=== PATIENT | female | born 1950 | race Caucasian/White ===

== ENCOUNTER 2016-11-16 11:32 | Emergency (ER) | payer OTHER, BC ==
[~2016-11-16] VITALS: Ht 157.5 cm; Wt 81.9 kg
[~2016-11-16 11:32] MED LIST: ASPIR 8181 M1 PO; ASPIRIN EC325 MG PO; ATARAX,VISTARIL25 MG PO; ATORVASTATIN CA80 MG PO; Atarax,Vistaril PO; CELEXA40 MG PO; CILOSTAZOL50 MG PO; CIPROFLOXACIN500 M1 PO; CITALOPRAM HBR20 MG PO; CITROMA296 ML PO; CLOPIDOGREL75 MG PO; CYANOCOBALAM1000 MCG PO; Cardizem CD,Cartia X PO; Diabeta,Micronase PO; ELAVIL25 MG PO; ESCITALOPRAM OX20 MG PO; Ecotrin PO; Effient PO; Elavil PO; FLEXERIL10 MG PO; FLONASE16 G1 BOTH NARES; GABAPENTIN100 MG PO; Glucophage PO; HUMALOG100 UNIT/1 SC; HYDROCORTISON28.4 GM TP; INSULIN PUMP SCCONT; INVOKANA300 MG PO; LEVEMIR FL100 UNIT/1 SC; LEVEMIR FL100 UNITS/ SC; LEVEMIR100 UNIT/2 SC; LEXAPRO20 MG PO; LIPITOR40 MG PO; LISINOPRIL10 MG PO; LISINOPRIL40 MG PO; LO-DOSE ASPIRIN81 M1 PO; Lipitor PO; METFORMIN HCL1000 MG PO; METOPROLOL SUCC50 MG PO; NEURONTIN300 MG PO; NITROSTAT0.4 MG SL; NORCO 5/3251 TABLET PO; Nitrostat,NitroQuick SL; NovoLOG, HumaLOG SC; OMEPRAZOLE20 M2 PO; PERCOCET 5/31 TABLET PO; PLAVIX75 MG PO; PREVPAC PATIEN1 EACH PO; PROAIR HFA8.5 GM IH; PROTONIX40 MG PO; TYLENOL EXTRA500 MG PO; VICTOZA0.6 MG/0.2 SC; VITAMIN B-6100 MG PO; ZETIA10 MG PO; Zestril,Prinivil PO; celeXA PO; levimir SQ
[2016-11-16 12:23] LABS: HEMATOCRIT 41.4 % (36.0-46.0); MCH 29.2 PG (29.0-34.0); MCHC 34.5 G/DL (30.0-36.0); MCV 84.7 FL (83-99); MEAN PLAT.VOLUME 10.1 uM^3 (9.5-12.4); PLATELET COUNT 305 K/uL (156-360); RBC DIS.WIDTH-SD 39.6 % (39-53); RED BLOOD COUNT 4.89 M/uL (3.80-5.20)
[2016-11-16 12:39] LABS: CHLORIDE 101 mEq/L (99-109); POTASSIUM 4.6 mEq/L (3.7-5.4); SODIUM 137 mEq/L (136-147)
[2016-11-16 12:41] LABS: GLUCOSE 274 mg/dL (70-99)
[2016-11-16 12:43] LABS: ANION GAP 8 MEQ/L (2-14); TOTAL BILIRUBIN 0.4 mg/dL (0.0-1.0)
[2016-11-16 12:45] LABS: ALKALINE PHOSPHATASE 92 IU/L (3-129); GFR ESTIMATE (CALCULATED) > 59 mL/min/
[2016-11-16 12:46] LABS: UREA NITROGEN (BUN) 15 mg/dL (9-23)
[2016-11-16 12:48] LABS: LIPASE 18 U/L (1.0-51.0)
[2016-11-16 14:03] LABS: ADD MIUA? YES; BILIRUBIN NEGATIVE; BLOOD NEGATIVE; COLOR YELLOW ((YELLOW)); GLUCOSE (STRIP) >=1000; KETONES NEGATIVE; LEUKOCYTES MODERATE; NITRITE NEGATIVE; PH, URINE 5.5 (5-8); PROTEIN (STRIP) TRACE; SPECIFIC GRAVITY 1.036 (1.000-1.030); UROBILINOGEN 0.2 MG/DL (0.2-1.0)
[2016-11-16 14:47] LABS: EPITHELIAL CELLS 1+; MUCUS NONE SEEN; RED BLOOD CELLS 0-5 /HPF (0-5); WHITE BLOOD CELLS 20-30 /HPF (0-5)
[2016-11-16 14:48] LABS: BACTERIA 1+; CASTS NONE SEEN /LPF; CRYSTALS NONE SEEN; UCUL ADDED? NO
[2016-11-16] MEDS ORDERED: NORCO 7.5/321 TABLET PO (15:54)
[2016-11-16] MEDS ORDERED: MOTRIN600 MG PO (15:54)
[2016-11-16 16:22] VITALS: BP 150/83
== END 2016-11-16 16:23 | disposition home or self-care (01) ==
LOC: EME 11:32
DX: B02.9 Zoster without complications (principal); E86.0 Dehydration; K57.90 Diverticulosis of intestine, part unspecified, without perforation or abscess without bleeding; E11.9 Type 2 diabetes mellitus without complications; E78.5 Hyperlipidemia, unspecified; I10 Essential (primary) hypertension; Z87.442 Personal history of urinary calculi; Z86.73 Personal history of transient ischemic attack (TIA), and cerebral infarction without residual deficits; Z96.41 Presence of insulin pump (external) (internal); Z79.4 Long term (current) use of insulin; Z98.61 Coronary angioplasty status; Z79.02 Long term (current) use of antithrombotics/antiplatelets; Z79.84 Long term (current) use of oral hypoglycemic drugs; Z79.82 Long term (current) use of aspirin
CPT/HCPCS: 74176; 80053; 81003; 83690; 85027; 87086; 93005; 99281; 99284; J3010

== ENCOUNTER 2017-09-19 07:14 | Inpatient (IN) | payer OTHER, BC ==
[~2017-09-19] VITALS: Ht 157.5 cm; Wt 85.7 kg
[~2017-09-19 07:14] MED LIST changes: +MOTRIN600 MG PO; +NORCO 7.5/321 TABLET PO
[2017-09-19] MEDS ORDERED: TOPROL XL25 MG PO (08:43)
[2017-09-19 08:46] LABS: POINT-OF-CARE METER ID UU13113696; POINT-OF-CARE USER ID HMLCJM07
[2017-09-19 12:58] LABS: POINT-OF-CARE METER ID UU13113819; POINT-OF-CARE USER ID 515036437
[2017-09-19 18:34] LABS: POINT-OF-CARE METER ID UU13113819
[2017-09-19 20:30] VITALS: BP 184/83
[2017-09-19 21:52] LABS: POINT-OF-CARE METER ID UU13113698
[2017-09-20] VITALS: BP 181/80
[2017-09-20 04:00] VITALS: BP 144/67
[2017-09-20 05:34] LABS: EOSINOPHIL (%) 1.1 % (0-5); EOSINOPHIL COUNT 0.1 K/uL (0-0.3); IMMATURE GRANULOCYTE (%) 0.2 % (0.0-0.7); INSTRUMENT ABS NEUTROPHIL CT 6.4 K/uL; LYMPHOCYTE COUNT 1.7 K/uL (1.0-2.8); MCH 28.2 PG (29.0-34.0); MCHC 33.8 G/DL (30.0-36.0); MCV 83.7 FL (83-99); MEAN PLAT.VOLUME 10.4 uM^3 (9.5-12.4); MONOCYTE (%) 6.8 % (3-12); MONOCYTE COUNT 0.6 K/uL (0-0.8); NEUTROPHIL (%) 72.4 % (45-76); NEUTROPHIL COUNT 6.4 K/uL (1.8-6.4); PLATELET COUNT 231 K/uL (156-360); RBC DIS.WIDTH-CV 12.8 % (11.8-14.6); RED BLOOD COUNT 4.78 M/uL (3.80-5.20); WHITE BLOOD COUNT 8.9 K/uL (4.1-10.2)
[2017-09-20 06:01] LABS: ANION GAP 9 MEQ/L (2-14); GFR ESTIMATE (CALCULATED) > 59 mL/min/; GLUCOSE 204 mg/dL (70-99); SAMPLE HEMOLYSIS CHECK 0; SAMPLE ICTERIC CHECK 0; SAMPLE LIPEMIA CHECK 0; SODIUM 136 MEQ/L (136-147); UREA NITROGEN (BUN) 15 mg/dL (9-23)
[2017-09-20 06:04] LABS: CHLORIDE 107 MEQ/L (99-109)
[2017-09-20 07:50] VITALS: BP 150/70
[2017-09-20 08:03] LABS: POINT-OF-CARE METER ID UU13113781
[2017-09-20 11:21] LABS: POINT-OF-CARE METER ID UU13113698
[2017-09-20 12:01] VITALS: BP 155/74
== END 2017-09-20 12:07 | disposition home or self-care (01) | DRG 247 ==
LOC: CATH 07:14 → ENRESERV 11:46 → 4EAST 20:51
PROVIDERS: Internal Medicine Interventional Cardiology
DX: I25.110 Atherosclerotic heart disease of native coronary artery with unstable angina pectoris (principal); Z95.5 Presence of coronary angioplasty implant and graft; I69.354 Hemiplegia and hemiparesis following cerebral infarction affecting left non-dominant side; E11.9 Type 2 diabetes mellitus without complications; I10 Essential (primary) hypertension; E78.2 Mixed hyperlipidemia; R60.0 Localized edema; E66.9 Obesity, unspecified; Z68.34 Body mass index [BMI] 34.0-34.9, adult
CPT/HCPCS: 36415; 80048; 82948; 85025; 85347; 85610; 85730; 93005; C1725; C1769; C1887; C1894; J0153; J0461; J0583; J1644; J1815; J2250; J3010; J7030

== ENCOUNTER 2017-09-26 20:09 | Inpatient (IN) | payer OTHER, BC ==
[~2017-09-26] VITALS: Ht 157.5 cm; Wt 84.9 kg
[~2017-09-26 20:09] MED LIST changes: +TOPROL XL25 MG PO
[2017-09-26 20:42] LABS: HEMATOCRIT 40.3 % (36.0-46.0); MCH 28.7 PG (29.0-34.0); MCHC 34.5 G/DL (30.0-36.0); MCV 83.1 FL (83-99); MEAN PLAT.VOLUME 10.2 uM^3 (9.5-12.4); RBC DIS.WIDTH-CV 12.9 % (11.8-14.6); RED BLOOD COUNT 4.85 M/uL (3.80-5.20); WHITE BLOOD COUNT 12.5 K/uL (4.1-10.2)
[2017-09-26 20:44] LABS: PLATELET COUNT 329 K/uL (156-360)
[2017-09-26 20:54] LABS: CHLORIDE 98 mEq/L (99-109); POTASSIUM 4.1 mEq/L (3.7-5.4); SODIUM 132 mEq/L (136-147)
[2017-09-26 20:58] LABS: ANION GAP 8 MEQ/L (2-14)
[2017-09-26 21:01] LABS: UREA NITROGEN (BUN) 20 mg/dL (9-23)
[2017-09-26 21:02] LABS: GFR ESTIMATE (CALCULATED) 30 mL/min/; GLUCOSE 458 mg/dL (70-99); TROP-I INTERPRETATION POSITIVE
[2017-09-26 21:05] LABS: TROPONIN-I 2.98 ng/mL (0.0-0.30)
[2017-09-26 22:58] LABS: PROTHROMBIN TIME 11.6 SEC (10.2-12.9)
[2017-09-26 23:01] LABS: PTT 27.1 SEC (25-37)
[2017-09-26 23:14] LABS: TROP-I INTERPRETATION POSITIVE
[2017-09-26 23:16] LABS: TROPONIN-I 14.51 ng/mL (0.0-0.30)
[2017-09-27] VITALS (31 sets, daily range): BP systolic 90–172; BP diastolic 49–107
[2017-09-27 01:11] LABS: POINT-OF-CARE METER ID UU13113702; POINT-OF-CARE USER ID HMLKAV
[2017-09-27 02:46] LABS: METH RESISTANT S AUREUS PCR NEGATIVE (NEGATIVE)
[2017-09-27 02:49] LABS: PROBE CHECK PASS; SPECIMEN PROCESSING CONTROL PASS
[2017-09-27 03:52] LABS: POINT-OF-CARE METER ID UU14208751
[2017-09-27 04:52] LABS: CHLORIDE 104 mEq/L (99-109); POTASSIUM 3.7 mEq/L (3.7-5.4); SODIUM 134 mEq/L (136-147)
[2017-09-27 04:54] LABS: GLUCOSE 308 mg/dL (70-99)
[2017-09-27 04:55] LABS: ANION GAP 4 MEQ/L (2-14)
[2017-09-27 04:56] LABS: TOTAL BILIRUBIN 0.4 mg/dL (0.0-1.0)
[2017-09-27 04:57] LABS: ALKALINE PHOSPHATASE 71 IU/L (3-129)
[2017-09-27 04:58] LABS: GFR ESTIMATE (CALCULATED) 44 mL/min/
[2017-09-27 04:58] LABS: POINT-OF-CARE METER ID UU14208751
[2017-09-27 04:59] LABS: UREA NITROGEN (BUN) 21 mg/dL (9-23)
[2017-09-27 05:04] LABS: TROP-I INTERPRETATION POSITIVE
[2017-09-27 05:54] LABS: POINT-OF-CARE METER ID UU14208751
[2017-09-27 06:38] LABS: Estimated Average Glucose 292 mg/dL (70-123); HEMOGLOBIN A1c (GLYCOHEMOGLOB) 11.8 % HGB (Below 5.7)
[2017-09-27 06:49] LABS: POINT-OF-CARE METER ID UU13113696
[2017-09-27 07:53] LABS: POINT-OF-CARE METER ID UU14208751
[2017-09-27 08:12] LABS: ANION GAP 4 MEQ/L (2-14); CHLORIDE 104 MEQ/L (99-109); POTASSIUM 3.6 MEQ/L (3.7-5.4); SAMPLE HEMOLYSIS CHECK 0; SAMPLE ICTERIC CHECK 0; SAMPLE LIPEMIA CHECK 0; SODIUM 138 MEQ/L (136-147)
[2017-09-27 08:18] LABS: GFR ESTIMATE (CALCULATED) 48 mL/min/; GLUCOSE 163 mg/dL (70-99); UREA NITROGEN (BUN) 21 mg/dL (9-23)
[2017-09-27 08:56] LABS: POINT-OF-CARE METER ID UU14208751
[2017-09-27 10:09] LABS: POINT-OF-CARE METER ID UU14208751
[2017-09-27 11:12] LABS: POINT-OF-CARE METER ID UU13113731
[2017-09-27 12:18] LABS: POINT-OF-CARE METER ID UU13113731
[2017-09-27 13:16] LABS: TROP-I INTERPRETATION POSITIVE; TROPONIN-I 38.42 ng/mL (0.0-0.30)
[2017-09-27 13:20] LABS: ANION GAP 7 MEQ/L (2-14); CHLORIDE 104 MEQ/L (99-109); GFR ESTIMATE (CALCULATED) 53 mL/min/; GLUCOSE 154 mg/dL (70-99); POTASSIUM 3.8 MEQ/L (3.7-5.4); SAMPLE HEMOLYSIS CHECK 0; SAMPLE ICTERIC CHECK 0; SAMPLE LIPEMIA CHECK 0; SODIUM 139 MEQ/L (136-147); UREA NITROGEN (BUN) 22 mg/dL (9-23)
[2017-09-27 13:25] LABS: POINT-OF-CARE METER ID UU13113731
[2017-09-27 14:34] LABS: POINT-OF-CARE METER ID UU13113731
[2017-09-27 15:43] LABS: POINT-OF-CARE METER ID UU13113731
[2017-09-27 16:18] LABS: ANION GAP 7 MEQ/L (2-14); CHLORIDE 104 MEQ/L (99-109); POTASSIUM 4.1 MEQ/L (3.7-5.4); SAMPLE HEMOLYSIS CHECK 0; SAMPLE ICTERIC CHECK 0; SAMPLE LIPEMIA CHECK 0; SODIUM 135 MEQ/L (136-147)
[2017-09-27 16:24] LABS: GFR ESTIMATE (CALCULATED) 53 mL/min/; GLUCOSE 206 mg/dL (70-99); UREA NITROGEN (BUN) 20 mg/dL (9-23)
[2017-09-27 16:37] LABS: POINT-OF-CARE METER ID UU13113731
[2017-09-27 17:51] LABS: POINT-OF-CARE METER ID UU13113731
[2017-09-27 22:07] LABS: POINT-OF-CARE METER ID UU13113731
[2017-09-28] VITALS (13 sets, daily range): BP systolic 127–173; BP diastolic 66–100
[2017-09-28 02:32] LABS: POINT-OF-CARE METER ID UU13113748
[2017-09-28 04:59] LABS: HEMATOCRIT 37.7 % (36.0-46.0); MCH 28.4 PG (29.0-34.0); MCHC 33.4 G/DL (30.0-36.0); MCV 85.1 FL (83-99); MEAN PLAT.VOLUME 10.4 uM^3 (9.5-12.4); PLATELET COUNT 263 K/uL (156-360); RBC DIS.WIDTH-CV 13.2 % (11.8-14.6); RBC DIS.WIDTH-SD 41.2 % (39-53); RED BLOOD COUNT 4.43 M/uL (3.80-5.20); WHITE BLOOD COUNT 9.7 K/uL (4.1-10.2)
[2017-09-28 05:13] LABS: CHLORIDE 105 mEq/L (99-109); POTASSIUM 4.2 mEq/L (3.7-5.4); SODIUM 138 mEq/L (136-147)
[2017-09-28 05:15] LABS: GLUCOSE 140 mg/dL (70-99)
[2017-09-28 05:16] LABS: ANION GAP 7 MEQ/L (2-14)
[2017-09-28 05:19] LABS: GFR ESTIMATE (CALCULATED) > 59 mL/min/; UREA NITROGEN (BUN) 17 mg/dL (9-23)
[2017-09-28 09:43] LABS: POINT-OF-CARE METER ID UU14314088
[2017-09-28 11:09] LABS: POINT-OF-CARE METER ID UU14314088
[2017-09-28 14:54] LABS: POINT-OF-CARE METER ID UU14314088
[2017-09-28 16:37] LABS: POINT-OF-CARE METER ID UU14314088
[2017-09-28 21:17] LABS: POINT-OF-CARE METER ID UU13113781
[2017-09-29 04:45] VITALS: BP 129/71
[2017-09-29 07:52] LABS: POINT-OF-CARE METER ID UU13113698
[2017-09-29 08:43] VITALS: BP 139/77
[2017-09-29] MEDS ORDERED: METOPROLOL SUCC25 MG PO (10:42)
[2017-09-29] MEDS ORDERED: ASPIR-LOW81 MG PO (10:43)
== END 2017-09-29 11:34 | disposition home or self-care (01) | DRG 281 ==
LOC: EME 20:09 → 4WEST 09-27 00:15 → EDOF 09-27 00:15 → ENRESERV 09-27 00:16 → 4WEST 09-27 01:16 → ENRESERV 09-28 07:31 → 4EAST 09-28 09:03
PROVIDERS: Emergency Medicine; Internal Medicine; Internal Medicine Critical Care Medicine
PROC: B41F1ZZ Fluoroscopy of Right Lower Extremity Arteries using Low Osmolar Contrast (ICD-10-PCS; principal; 2017-09-27)
PROC: 4A023N7 Measurement of Cardiac Sampling and Pressure, Left Heart, Percutaneous Approach (ICD-10-PCS; principal; 2017-09-27)
PROC: B2111ZZ Fluoroscopy of Multiple Coronary Arteries using Low Osmolar Contrast (ICD-10-PCS; principal; 2017-09-27)
PROC: B2151ZZ Fluoroscopy of Left Heart using Low Osmolar Contrast (ICD-10-PCS; principal; 2017-09-27)
DX: T82.867A Thrombosis due to cardiac prosthetic devices, implants and grafts, initial encounter (principal); Y83.1 Surgical operation with implant of artificial internal device as the cause of abnormal reaction of the patient, or of later complication, without mention of misadventure at the time of the procedure; I21.4 Non-ST elevation (NSTEMI) myocardial infarction; I16.1 Hypertensive emergency; N17.9 Acute kidney failure, unspecified; E86.0 Dehydration; I10 Essential (primary) hypertension; I25.10 Atherosclerotic heart disease of native coronary artery without angina pectoris; E78.5 Hyperlipidemia, unspecified; E11.65 Type 2 diabetes mellitus with hyperglycemia; F32.9 Major depressive disorder, single episode, unspecified; F41.9 Anxiety disorder, unspecified; G43.909 Migraine, unspecified, not intractable, without status migrainosus; E66.9 Obesity, unspecified; Z96.41 Presence of insulin pump (external) (internal); I69.398 Other sequelae of cerebral infarction; H53.8 Other visual disturbances; Z95.5 Presence of coronary angioplasty implant and graft; Z68.34 Body mass index [BMI] 34.0-34.9, adult; Z79.4 Long term (current) use of insulin; Z79.02 Long term (current) use of antithrombotics/antiplatelets; Z91.14 Patient's other noncompliance with medication regimen
CPT/HCPCS: 71020; 80048; 80048 91; 80053; 82948; 83036; 84100; 84484; 85027; 85347; 85610; 85730; 87641; 93005; 99281; 99285; C1760; C1769; C1887; C1894; J1644; J1815; J2250; J2270; J3010; J7030; J7040; J7050

== ENCOUNTER 2017-10-09 10:28 | Inpatient (IN) | payer OTHER, BC ==
[~2017-10-09] VITALS: Ht 157.5 cm; Wt 82.7 kg
[~2017-10-09 10:28] MED LIST changes: +ASPIR-LOW81 MG PO; +METOPROLOL SUCC25 MG PO
[2017-10-09 11:06] LABS: MCH 27.6 PG (29.0-34.0); MCHC 33.3 G/DL (30.0-36.0); MCV 82.8 FL (83-99); MEAN PLAT.VOLUME 9.9 uM^3 (9.5-12.4); RBC DIS.WIDTH-CV 12.8 % (11.8-14.6); RBC DIS.WIDTH-SD 38.4 % (39-53); RED BLOOD COUNT 5.07 M/uL (3.80-5.20); WHITE BLOOD COUNT 7.6 K/uL (4.1-10.2)
[2017-10-09 11:10] LABS: PLATELET COUNT 344 K/uL (156-360)
[2017-10-09 11:17] LABS: CHLORIDE 97 mEq/L (99-109); POTASSIUM 4.3 mEq/L (3.7-5.4); SODIUM 134 mEq/L (136-147)
[2017-10-09 11:20] LABS: ANION GAP 12 MEQ/L (2-14); GLUCOSE 422 mg/dL (70-99)
[2017-10-09 11:23] LABS: GFR ESTIMATE (CALCULATED) 44 mL/min/
[2017-10-09 11:24] LABS: UREA NITROGEN (BUN) 18 mg/dL (9-23)
[2017-10-09 11:27] LABS: TROP-I INTERPRETATION NEGATIVE; TROPONIN-I 0.21 ng/mL (0.0-0.30)
[2017-10-09 12:03] LABS: POINT-OF-CARE METER ID UU13113747
[2017-10-09 13:53] LABS: PROTHROMBIN TIME 11.2 SEC (10.2-12.9)
[2017-10-09 13:56] LABS: PTT 26.2 SEC (25-37)
[2017-10-09 14:31] LABS: POINT-OF-CARE METER ID UU13113747
[2017-10-09 17:08] LABS: POINT-OF-CARE METER ID UU13113702
[2017-10-09 18:00] VITALS: BP 153/75
[2017-10-09 18:40] LABS: TROP-I INTERPRETATION NEGATIVE; TROPONIN-I 0.26 ng/mL (0.0-0.30)
[2017-10-09 19:25] LABS: POINT-OF-CARE METER ID UU13113781
[2017-10-09 20:13] VITALS: BP 128/73
[2017-10-09 22:33] LABS: POINT-OF-CARE METER ID UU14314088
[2017-10-09 23:22] VITALS: BP 128/60
[2017-10-10] VITALS (7 sets, daily range): BP systolic 106–136; BP diastolic 58–78
[2017-10-10 00:56] LABS: TROP-I INTERPRETATION NEGATIVE; TROPONIN-I 0.22 ng/mL (0.0-0.30)
[2017-10-10 02:11] LABS: POINT-OF-CARE METER ID UU13113698
[2017-10-10 06:16] LABS: POINT-OF-CARE METER ID UU14314088
[2017-10-10 06:37] LABS: ANION GAP 9 MEQ/L (2-14); CHLORIDE 100 MEQ/L (99-109); GFR ESTIMATE (CALCULATED) 59 mL/min/; POTASSIUM 4.3 MEQ/L (3.7-5.4); SAMPLE HEMOLYSIS CHECK 0; SAMPLE ICTERIC CHECK 0; SAMPLE LIPEMIA CHECK 0; SODIUM 138 MEQ/L (136-147); UREA NITROGEN (BUN) 21 mg/dL (9-23)
[2017-10-10 06:40] LABS: GLUCOSE 185 mg/dL (70-99)
[2017-10-10 10:24] LABS: POINT-OF-CARE METER ID UU14174216
[2017-10-10 18:21] LABS: POINT-OF-CARE METER ID UU14314088
[2017-10-10 21:14] LABS: POINT-OF-CARE METER ID UU13113698
[2017-10-11] VITALS (8 sets, daily range): BP systolic 106–146; BP diastolic 60–82
[2017-10-11 06:55] LABS: MCH 27.9 PG (29.0-34.0); MCHC 32.7 G/DL (30.0-36.0); MCV 85.3 FL (83-99); MEAN PLAT.VOLUME 10.3 uM^3 (9.5-12.4); PLATELET COUNT 287 K/uL (156-360); RBC DIS.WIDTH-CV 12.9 % (11.8-14.6); RBC DIS.WIDTH-SD 40.3 % (39-53); RED BLOOD COUNT 4.34 M/uL (3.80-5.20); WHITE BLOOD COUNT 8.4 K/uL (4.1-10.2)
[2017-10-11 07:18] LABS: ANION GAP 8 MEQ/L (2-14); CHLORIDE 99 MEQ/L (99-109); GFR ESTIMATE (CALCULATED) 30 mL/min/; POTASSIUM 4.4 MEQ/L (3.7-5.4); SAMPLE HEMOLYSIS CHECK 0; SAMPLE ICTERIC CHECK 0; SAMPLE LIPEMIA CHECK 0; SODIUM 135 MEQ/L (136-147)
[2017-10-11 07:20] LABS: GLUCOSE 301 mg/dL (70-99); UREA NITROGEN (BUN) 37 mg/dL (9-23)
[2017-10-11 08:02] LABS: POINT-OF-CARE METER ID UU13113698
[2017-10-11 10:48] LABS: POINT-OF-CARE METER ID UU13113698
[2017-10-11 11:32] LABS: POINT-OF-CARE METER ID UU13113781
[2017-10-11 11:45] LABS: ANION GAP 5 MEQ/L (2-14); CHLORIDE 103 MEQ/L (99-109); GFR ESTIMATE (CALCULATED) 37 mL/min/; GLUCOSE 223 mg/dL (70-99); POTASSIUM 4.5 MEQ/L (3.7-5.4); SAMPLE HEMOLYSIS CHECK 0; SAMPLE ICTERIC CHECK 0; SAMPLE LIPEMIA CHECK 0; SODIUM 135 MEQ/L (136-147); UREA NITROGEN (BUN) 36 mg/dL (9-23)
[2017-10-11 21:41] LABS: POINT-OF-CARE METER ID UU14314088
[2017-10-12 00:34] VITALS: BP 134/76
[2017-10-12 04:57] VITALS: BP 131/61
[2017-10-12 06:14] LABS: ANION GAP 5 MEQ/L (2-14); CHLORIDE 105 MEQ/L (99-109); GFR ESTIMATE (CALCULATED) 37 mL/min/; GLUCOSE 185 mg/dL (70-99); POTASSIUM 4.2 MEQ/L (3.7-5.4); SAMPLE HEMOLYSIS CHECK 0; SAMPLE ICTERIC CHECK 0; SAMPLE LIPEMIA CHECK 0; SODIUM 138 MEQ/L (136-147); UREA NITROGEN (BUN) 32 mg/dL (9-23)
[2017-10-12 06:32] LABS: POINT-OF-CARE METER ID UU14314088
[2017-10-12 06:48] LABS: EOSINOPHIL (%) 3.1 % (0-5); EOSINOPHIL COUNT 0.2 K/uL (0-0.3); HEMATOCRIT 34.9 % (36.0-46.0); IMMATURE GRANULOCYTE (%) 0.3 % (0.0-0.7); INSTRUMENT ABS NEUTROPHIL CT 3.7 K/uL; LYMPHOCYTE COUNT 1.9 K/uL (1.0-2.8); MCH 28.4 PG (29.0-34.0); MCHC 33.2 G/DL (30.0-36.0); MCV 85.5 FL (83-99); MEAN PLAT.VOLUME 10.6 uM^3 (9.5-12.4); MONOCYTE (%) 9.8 % (3-12); MONOCYTE COUNT 0.6 K/uL (0-0.8); NEUTROPHIL (%) 57.4 % (45-76); NEUTROPHIL COUNT 3.7 K/uL (1.8-6.4); PLATELET COUNT 251 K/uL (156-360); RBC DIS.WIDTH-CV 13.2 % (11.8-14.6); RBC DIS.WIDTH-SD 41.2 % (39-53); RED BLOOD COUNT 4.08 M/uL (3.80-5.20); WHITE BLOOD COUNT 6.4 K/uL (4.1-10.2)
[2017-10-12 07:49] VITALS: BP 139/74
[2017-10-12 08:12] LABS: POINT-OF-CARE METER ID UU13113698
[2017-10-12] MEDS ORDERED: IMDUR60 MG PO (10:34)
[2017-10-12] MEDS ORDERED: RANEXA500 MG PO (10:34)
[2017-10-12] MEDS ORDERED: BRILINTA90 MG PO (10:34)
[2017-10-12] MEDS ORDERED: NITROSTAT0.4 MG SL (10:34)
== END 2017-10-12 11:54 | disposition home or self-care (01) | DRG 246 ==
LOC: EME 10:28 → EDOF 12:41 → ENRESERV 12:47 → CANRESERV 12:47 → EDOF 13:07 → 4EAST 13:07 → EDOF 13:07 → ENRESERV 13:08 → 4EAST 17:38
PROVIDERS: Emergency Medicine Emergency Medical Services; Family Medicine; Internal Medicine; Internal Medicine Cardiovascular Disease
DX: I25.110 Atherosclerotic heart disease of native coronary artery with unstable angina pectoris (principal); I21.4 Non-ST elevation (NSTEMI) myocardial infarction; N17.9 Acute kidney failure, unspecified; T46.4X5A Adverse effect of angiotensin-converting-enzyme inhibitors, initial encounter; Y92.239 Unspecified place in hospital as the place of occurrence of the external cause; N18.4 Chronic kidney disease, stage 4 (severe); I12.9 Hypertensive chronic kidney disease with stage 1 through stage 4 chronic kidney disease, or unspecified chronic kidney disease; Z91.19 Patient's noncompliance with other medical treatment and regimen; I35.0 Nonrheumatic aortic (valve) stenosis; E78.5 Hyperlipidemia, unspecified; Z86.73 Personal history of transient ischemic attack (TIA), and cerebral infarction without residual deficits; I25.2 Old myocardial infarction; Z79.4 Long term (current) use of insulin; Z95.1 Presence of aortocoronary bypass graft; Z96.41 Presence of insulin pump (external) (internal); E11.22 Type 2 diabetes mellitus with diabetic chronic kidney disease
CPT/HCPCS: 71020; 80048; 80048 91; 82948; 84484; 85025; 85027; 85347; 85610; 85730; 93005; 99281; 99285; C1725; C1760; C1769; C1874; C1887; C1894; J0461; J0583; J0690; J1644; J1815; J2250; J2270; J3010; J7030

== ENCOUNTER 2017-10-22 23:14 | Inpatient (IN) | payer OTHER, BC ==
[~2017-10-22] VITALS: Ht 157.5 cm; Wt 81.8 kg
[~2017-10-22 23:14] MED LIST changes: +BRILINTA90 MG PO; +IMDUR60 MG PO; +RANEXA500 MG PO
[2017-10-22 23:48] LABS: HEMATOCRIT 44.3 % (36.0-46.0); MCH 27.7 PG (29.0-34.0); MCHC 33.6 G/DL (30.0-36.0); MCV 82.5 FL (83-99); MEAN PLAT.VOLUME 10.2 uM^3 (9.5-12.4); PLATELET COUNT 373 K/uL (156-360); RBC DIS.WIDTH-CV 12.8 % (11.8-14.6); RBC DIS.WIDTH-SD 38.5 % (39-53); RED BLOOD COUNT 5.37 M/uL (3.80-5.20); WHITE BLOOD COUNT 9.1 K/uL (4.1-10.2)
[2017-10-22 23:56] LABS: CHLORIDE 101 mEq/L (99-109); POTASSIUM 4.1 mEq/L (3.7-5.4); SODIUM 135 mEq/L (136-147)
[2017-10-22 23:59] LABS: GLUCOSE 308 mg/dL (70-99); PROTHROMBIN TIME 10.9 SEC (10.2-12.9)
[2017-10-23] LABS: ANION GAP 12 MEQ/L (2-14)
[2017-10-23 00:01] LABS: TOTAL BILIRUBIN 0.5 mg/dL (0.0-1.0)
[2017-10-23 00:02] LABS: ALKALINE PHOSPHATASE 82 IU/L (3-129); GFR ESTIMATE (CALCULATED) 48 mL/min/; PTT 29.7 SEC (25-37)
[2017-10-23 00:03] LABS: UREA NITROGEN (BUN) 17 mg/dL (9-23)
[2017-10-23 00:06] LABS: LIPASE 27 U/L (1.0-51.0)
[2017-10-23 00:07] LABS: TROP-I INTERPRETATION NEGATIVE; TROPONIN-I 0.04 ng/mL (0.0-0.30)
[2017-10-23 03:56] LABS: TROP-I INTERPRETATION NEGATIVE; TROPONIN-I 0.04 ng/mL (0.0-0.30)
[2017-10-23 05:01] LABS: POINT-OF-CARE METER ID UU14100415
[2017-10-23 07:10] LABS: HEMATOCRIT 38.1 % (36.0-46.0); MCH 28.8 PG (29.0-34.0); MCHC 34.1 G/DL (30.0-36.0); MCV 84.5 FL (83-99); MEAN PLAT.VOLUME 10.2 uM^3 (9.5-12.4); PLATELET COUNT 305 K/uL (156-360); RBC DIS.WIDTH-CV 12.9 % (11.8-14.6); RBC DIS.WIDTH-SD 39.8 % (39-53); RED BLOOD COUNT 4.51 M/uL (3.80-5.20); WHITE BLOOD COUNT 8.4 K/uL (4.1-10.2)
[2017-10-23 07:40] LABS: TROP-I INTERPRETATION NEGATIVE; TROPONIN-I 0.04 ng/mL (0.0-0.30)
[2017-10-23 08:14] LABS: ANION GAP 7 MEQ/L (2-14); CHLORIDE 102 MEQ/L (99-109); GFR ESTIMATE (CALCULATED) 44 mL/min/; GLUCOSE 241 mg/dL (70-99); POTASSIUM 4.2 MEQ/L (3.7-5.4); SAMPLE HEMOLYSIS CHECK 0; SAMPLE ICTERIC CHECK 0; SAMPLE LIPEMIA CHECK 0; SODIUM 135 MEQ/L (136-147); UREA NITROGEN (BUN) 19 mg/dL (9-23)
[2017-10-23 08:14] LABS: POINT-OF-CARE METER ID UU14100415
[2017-10-23 08:35] LABS: ADD MIUA? YES; BILIRUBIN NEGATIVE; BLOOD NEGATIVE; COLOR YELLOW ((YELLOW)); GLUCOSE (STRIP) >=500; KETONES NEGATIVE; LEUKOCYTES TRACE; NITRITE NEGATIVE; PROTEIN (STRIP) 30; UROBILINOGEN 0.2 MG/DL (0.2-1.0)
[2017-10-23 08:51] LABS: BACTERIA NONE SEEN /HPF; EPITHELIAL CELLS 1+ /HPF; MUCUS TRACE /LPF; RED BLOOD CELLS 0-5 /HPF (0-5); UCUL ADDED? YES
[2017-10-23 08:53] LABS: SPECIFIC GRAVITY 1.057 (1.000-1.030)
[2017-10-23] MEDS ORDERED: LISINOPRIL40 MG PO (09:46)
[2017-10-23 12:12] VITALS: BP 104/59
[2017-10-23 12:19] LABS: POINT-OF-CARE METER ID UU14100415
[2017-10-23 12:20] LABS: TROP-I INTERPRETATION NEGATIVE; TROPONIN-I 0.04 ng/mL (0.0-0.30)
== END 2017-10-23 14:36 | disposition home or self-care (01) | DRG 313 ==
LOC: EME 23:14 → EDOF 10-23 02:38 → ENRESERV 10-23 02:39 → CANRESERV 10-23 02:39 → ENRESERV 10-23 13:04 → CANRESERV 10-23 13:04 → EDOF 10-23 14:36
PROVIDERS: Emergency Medicine; Hospitalist
DX: R07.9 Chest pain, unspecified (principal); E11.65 Type 2 diabetes mellitus with hyperglycemia; I25.110 Atherosclerotic heart disease of native coronary artery with unstable angina pectoris; I16.0 Hypertensive urgency; I10 Essential (primary) hypertension; Z86.73 Personal history of transient ischemic attack (TIA), and cerebral infarction without residual deficits; E66.9 Obesity, unspecified; I25.2 Old myocardial infarction; E78.5 Hyperlipidemia, unspecified; K21.9 Gastro-esophageal reflux disease without esophagitis; Z96.41 Presence of insulin pump (external) (internal); Z79.4 Long term (current) use of insulin; Z95.5 Presence of coronary angioplasty implant and graft; Z90.710 Acquired absence of both cervix and uterus; Z87.11 Personal history of peptic ulcer disease; Z82.49 Family history of ischemic heart disease and other diseases of the circulatory system
CPT/HCPCS: 71275; 80048; 80053; 81003; 82948; 83690; 84484; 85027; 85610; 85730; 87086; 93005; J0360; J1644; J2270; J2405

== ENCOUNTER 2017-10-25 00:57 | Observation (INO) | payer OTHER, BC ==
[~2017-10-25] VITALS: Ht 157.5 cm; Wt 84.4 kg
[2017-10-25 01:29] LABS: HEMATOCRIT 38.7 % (36.0-46.0); MCH 28.5 PG (29.0-34.0); MCHC 34.1 G/DL (30.0-36.0); MCV 83.6 FL (83-99); MEAN PLAT.VOLUME 10.1 uM^3 (9.5-12.4); PLATELET COUNT 296 K/uL (156-360); RBC DIS.WIDTH-CV 12.8 % (11.8-14.6); RBC DIS.WIDTH-SD 38.7 % (39-53); RED BLOOD COUNT 4.63 M/uL (3.80-5.20); WHITE BLOOD COUNT 9.6 K/uL (4.1-10.2)
[2017-10-25 01:38] LABS: CHLORIDE 104 mEq/L (99-109); POTASSIUM 4.3 mEq/L (3.7-5.4); SODIUM 136 mEq/L (136-147)
[2017-10-25 01:39] LABS: GLUCOSE 330 mg/dL (70-99)
[2017-10-25 01:41] LABS: ANION GAP 9 MEQ/L (2-14)
[2017-10-25 01:43] LABS: GFR ESTIMATE (CALCULATED) 44 mL/min/
[2017-10-25 01:44] LABS: UREA NITROGEN (BUN) 24 mg/dL (9-23)
[2017-10-25 01:50] LABS: TROP-I INTERPRETATION NEGATIVE; TROPONIN-I 0.03 ng/mL (0.0-0.30)
[2017-10-25 02:43] LABS: TOTAL BILIRUBIN 0.4 mg/dL (0.0-1.0)
[2017-10-25 02:44] LABS: ALKALINE PHOSPHATASE 93 IU/L (3-129)
[2017-10-25 02:46] LABS: DIRECT BILIRUBIN 0.1 mg/dL (0.0-0.3)
[2017-10-25 02:47] LABS: LIPASE 42 U/L (1.0-51.0)
[2017-10-25 12:24] VITALS: BP 103/58
[2017-10-25 14:00] LABS: TROP-I INTERPRETATION NEGATIVE; TROPONIN-I 0.02 ng/mL (0.0-0.30)
[2017-10-25 14:58] LABS: POINT-OF-CARE METER ID UU14162513
[2017-10-25 16:01] VITALS: BP 113/56
[2017-10-25 16:39] LABS: POINT-OF-CARE METER ID UU14162513
[2017-10-25 18:32] LABS: TROP-I INTERPRETATION NEGATIVE; TROPONIN-I 0.02 ng/mL (0.0-0.30)
[2017-10-25 19:19] VITALS: BP 197/59
[2017-10-25 21:38] LABS: POINT-OF-CARE METER ID UU14162513
[2017-10-25 23:45] VITALS: BP 123/69
[2017-10-26 04:45] VITALS: BP 160/80
[2017-10-26 05:29] LABS: EOSINOPHIL (%) 4.9 % (0-5); HEMATOCRIT 35.9 % (36.0-46.0); IMMATURE GRANULOCYTE (%) 0.4 % (0.0-0.7); MCH 28.4 PG (29.0-34.0); MCHC 33.4 G/DL (30.0-36.0); MCV 84.9 FL (83-99); MEAN PLAT.VOLUME 10.2 uM^3 (9.5-12.4); MONOCYTE (%) 7.5 % (3-12); NEUTROPHIL (%) 61.8 % (45-76); PLATELET COUNT 269 K/uL (156-360); RBC DIS.WIDTH-CV 13.1 % (11.8-14.6); RBC DIS.WIDTH-SD 39.8 % (39-53); RED BLOOD COUNT 4.23 M/uL (3.80-5.20); WHITE BLOOD COUNT 8.4 K/uL (4.1-10.2)
[2017-10-26 05:30] LABS: BASOPHIL COUNT 0.1 K/uL (0-0.1); EOSINOPHIL COUNT 0.4 K/uL (0-0.3); INSTRUMENT ABS NEUTROPHIL CT 5.2 K/uL; LYMPHOCYTE COUNT 2.1 K/uL (1.0-2.8); MONOCYTE COUNT 0.6 K/uL (0-0.8); NEUTROPHIL COUNT 5.2 K/uL (1.8-6.4)
[2017-10-26 06:12] LABS: ANION GAP 7 MEQ/L (2-14); CHLORIDE 104 MEQ/L (99-109); GFR ESTIMATE (CALCULATED) 34 mL/min/; GLUCOSE 141 mg/dL (70-99); POTASSIUM 4.3 MEQ/L (3.7-5.4); SAMPLE HEMOLYSIS CHECK 0; SAMPLE ICTERIC CHECK 0; SAMPLE LIPEMIA CHECK 0; SODIUM 138 MEQ/L (136-147); UREA NITROGEN (BUN) 27 mg/dL (9-23)
[2017-10-26 08:02] LABS: POINT-OF-CARE METER ID UU14162513
[2017-10-26 08:13] VITALS: BP 139/82
[2017-10-26 11:25] VITALS: BP 112/59
[2017-10-26 11:43] LABS: UR CREATININE CONCENTRATION 240.1 MG/DL
[2017-10-26 12:15] LABS: POINT-OF-CARE METER ID UU14162513
[2017-10-26 14:52] LABS: ANION GAP 7 MEQ/L (2-14); CHLORIDE 106 MEQ/L (99-109); SAMPLE HEMOLYSIS CHECK 1; SAMPLE ICTERIC CHECK 0; SAMPLE LIPEMIA CHECK 0; SODIUM 135 MEQ/L (136-147)
[2017-10-26 14:59] LABS: GFR ESTIMATE (CALCULATED) 30 mL/min/; GLUCOSE 173 mg/dL (70-99); UREA NITROGEN (BUN) 31 mg/dL (9-23)
[2017-10-26 17:23] LABS: POINT-OF-CARE METER ID UU14162513
[2017-10-26 19:10] VITALS: BP 123/63
[2017-10-26 19:43] LABS: ADD MIUA? YES; BILIRUBIN NEGATIVE; BLOOD NEGATIVE; COLOR YELLOW ((YELLOW)); GLUCOSE (STRIP) 50; KETONES NEGATIVE; LEUKOCYTES NEGATIVE; NITRITE NEGATIVE; PROTEIN (STRIP) NEGATIVE; SPECIFIC GRAVITY 1.016 (1.000-1.030); UROBILINOGEN 0.2 MG/DL (0.2-1.0)
[2017-10-26 19:51] LABS: BACTERIA NONE SEEN /HPF; EPITHELIAL CELLS 1+ /HPF; MUCUS NONE SEEN /LPF; WHITE BLOOD CELLS 0-5 /HPF (0-5)
[2017-10-26 21:35] LABS: POINT-OF-CARE METER ID UU14162513
[2017-10-26 23:21] VITALS: BP 136/65
[2017-10-27 04:23] VITALS: BP 141/70
[2017-10-27 05:34] LABS: EOSINOPHIL COUNT 0.3 K/uL (0-0.3); HEMATOCRIT 34.2 % (36.0-46.0); IMMATURE GRANULOCYTE (%) 0.3 % (0.0-0.7); INSTRUMENT ABS NEUTROPHIL CT 3.3 K/uL; LYMPHOCYTE COUNT 2.6 K/uL (1.0-2.8); MCH 28.3 PG (29.0-34.0); MCHC 32.5 G/DL (30.0-36.0); MCV 87.2 FL (83-99); MEAN PLAT.VOLUME 10.3 uM^3 (9.5-12.4); MONOCYTE (%) 7.6 % (3-12); MONOCYTE COUNT 0.5 K/uL (0-0.8); NEUTROPHIL (%) 48.3 % (45-76); NEUTROPHIL COUNT 3.3 K/uL (1.8-6.4); PLATELET COUNT 254 K/uL (156-360); RBC DIS.WIDTH-CV 13.2 % (11.8-14.6); RBC DIS.WIDTH-SD 42.1 % (39-53); RED BLOOD COUNT 3.92 M/uL (3.80-5.20); WHITE BLOOD COUNT 6.8 K/uL (4.1-10.2)
[2017-10-27 06:06] LABS: ANION GAP 6 MEQ/L (2-14); CHLORIDE 107 MEQ/L (99-109); GFR ESTIMATE (CALCULATED) 40 mL/min/; GLUCOSE 102 mg/dL (70-99); POTASSIUM 4.4 MEQ/L (3.7-5.4); SAMPLE HEMOLYSIS CHECK 0; SAMPLE ICTERIC CHECK 0; SAMPLE LIPEMIA CHECK 0; SODIUM 140 MEQ/L (136-147); UREA NITROGEN (BUN) 27 mg/dL (9-23)
[2017-10-27 08:09] LABS: POINT-OF-CARE METER ID UU14162513
[2017-10-27 08:31] VITALS: BP 157/73
[2017-10-27 11:35] VITALS: BP 105/57
[2017-10-27 12:27] LABS: POINT-OF-CARE METER ID UU14162513
[2017-10-27 12:34] LABS: ANION GAP 5 MEQ/L (2-14); CHLORIDE 107 MEQ/L (99-109); GFR ESTIMATE (CALCULATED) 37 mL/min/; GLUCOSE 131 mg/dL (70-99); POTASSIUM 4.4 MEQ/L (3.7-5.4); SAMPLE HEMOLYSIS CHECK 0; SAMPLE ICTERIC CHECK 0; SAMPLE LIPEMIA CHECK 0; SODIUM 136 MEQ/L (136-147); UREA NITROGEN (BUN) 27 mg/dL (9-23)
[2017-10-27 16:04] VITALS: BP 146/82
[2017-10-27 16:22] VITALS: BP 139/68
[2017-10-27 16:30] LABS: POINT-OF-CARE METER ID UU14162513
[2017-10-27 20:00] VITALS: BP 158/76
[2017-10-27 22:16] LABS: POINT-OF-CARE METER ID UU14162513
[2017-10-28] VITALS: BP 146/73
[2017-10-28 04:00] VITALS: BP 160/80
[2017-10-28 06:27] LABS: ANION GAP 5 MEQ/L (2-14); CHLORIDE 109 MEQ/L (99-109); GFR ESTIMATE (CALCULATED) 32 mL/min/; GLUCOSE 105 mg/dL (70-99); POTASSIUM 4.9 MEQ/L (3.7-5.4); SAMPLE HEMOLYSIS CHECK 0; SAMPLE ICTERIC CHECK 0; SAMPLE LIPEMIA CHECK 0; SODIUM 142 MEQ/L (136-147); UREA NITROGEN (BUN) 25 mg/dL (9-23)
[2017-10-28 07:58] LABS: POINT-OF-CARE METER ID UU14302475
[2017-10-28] MEDS ORDERED: APRESOLINE10 MG PO (10:35)
[2017-10-28] MEDS ORDERED: TYLENOL REGULA325 MG PO (10:36)
[2017-10-28] MEDS ORDERED: OXYCONTIN10 MG PO (10:39)
== END 2017-10-28 12:45 | disposition home or self-care (01) ==
LOC: EME 00:57 → EDOF 06:05 → ENRESERV 06:19 → EDOF 06:58 → ENRESERV 10:56 → 5WEST 11:56 → ENPENDDIS 10-28 → 5WEST 10-28 12:45
PROVIDERS: Hospitalist; Internal Medicine
DX: M54.9 Dorsalgia, unspecified (principal); M25.511 Pain in right shoulder; I10 Essential (primary) hypertension; N17.9 Acute kidney failure, unspecified; T39.395A Adverse effect of other nonsteroidal anti-inflammatory drugs [NSAID], initial encounter; T50.8X5A Adverse effect of diagnostic agents, initial encounter; E11.65 Type 2 diabetes mellitus with hyperglycemia; R31.29 Other microscopic hematuria; D64.9 Anemia, unspecified; E87.2 Acidosis; E78.5 Hyperlipidemia, unspecified; I25.10 Atherosclerotic heart disease of native coronary artery without angina pectoris; Z95.5 Presence of coronary angioplasty implant and graft; Z90.710 Acquired absence of both cervix and uterus; Z82.49 Family history of ischemic heart disease and other diseases of the circulatory system; Z82.3 Family history of stroke; F40.240 Claustrophobia
CPT/HCPCS: 71020; 71275; 76705; 76770; 80048; 80048 91; 80076; 81003; 82570; 82948; 83690; 83935; 84300; 84484; 84540; 85025; 85027; 85651; 86140; 89190; 93005; 99281; 99285; G0378; J0360; J1170; J1650; J1885; J2270; J7030; J7040; J7050

== ENCOUNTER 2017-10-29 00:04 | Emergency (ER) | payer OTHER, BC ==
[~2017-10-29] VITALS: Ht 172.7 cm; Wt 91.8 kg
[~2017-10-29 00:04] MED LIST changes: +APRESOLINE10 MG PO; +OXYCONTIN10 MG PO; +TYLENOL REGULA325 MG PO
[2017-10-29 00:38] LABS: EOSINOPHIL (%) 3.7 % (0-5); EOSINOPHIL COUNT 0.3 K/uL (0-0.3); HEMATOCRIT 33.6 % (36.0-46.0); IMMATURE GRANULOCYTE (%) 0.4 % (0.0-0.7); INSTRUMENT ABS NEUTROPHIL CT 6.1 K/uL; LYMPHOCYTE COUNT 1.4 K/uL (1.0-2.8); MCH 28.6 PG (29.0-34.0); MCHC 32.7 G/DL (30.0-36.0); MCV 87.3 FL (83-99); MEAN PLAT.VOLUME 10.4 uM^3 (9.5-12.4); MONOCYTE (%) 5.2 % (3-12); MONOCYTE COUNT 0.4 K/uL (0-0.8); NEUTROPHIL (%) 73.4 % (45-76); NEUTROPHIL COUNT 6.1 K/uL (1.8-6.4); PLATELET COUNT 246 K/uL (156-360); RBC DIS.WIDTH-CV 13.3 % (11.8-14.6); RBC DIS.WIDTH-SD 42.1 % (39-53); RED BLOOD COUNT 3.85 M/uL (3.80-5.20); WHITE BLOOD COUNT 8.3 K/uL (4.1-10.2)
[2017-10-29 00:53] LABS: CHLORIDE 108 mEq/L (99-109); POTASSIUM 4.7 mEq/L (3.7-5.4); SODIUM 139 mEq/L (136-147)
[2017-10-29 00:54] LABS: MAGNESIUM 1.9 mg/dL (1.3-2.7)
[2017-10-29 00:57] LABS: ANION GAP 8 MEQ/L (2-14)
[2017-10-29 00:58] LABS: GLUCOSE 272 mg/dL (70-99); TOTAL BILIRUBIN 0.4 mg/dL (0.0-1.0)
[2017-10-29 00:59] LABS: GFR ESTIMATE (CALCULATED) 37 mL/min/
[2017-10-29 01:00] LABS: ALKALINE PHOSPHATASE 118 IU/L (3-129); TROP-I INTERPRETATION NEGATIVE; TROPONIN-I 0.02 ng/mL (0.0-0.30); UREA NITROGEN (BUN) 24 mg/dL (9-23)
[2017-10-29 01:02] LABS: CK-MB 1.8 ng/mL (0.0-4.9)
[2017-10-29 01:03] LABS: CREATINE KINASE 39 IU/L (1-294); LIPASE 21 U/L (1.0-51.0); TOTAL CK 39 IU/L (1-294)
[2017-10-29 01:54] LABS: ADD MIUA? NO; BILIRUBIN NEGATIVE; BLOOD NEGATIVE; COLOR YELLOW ((YELLOW)); GLUCOSE (STRIP) >=500; KETONES NEGATIVE; LEUKOCYTES NEGATIVE; NITRITE NEGATIVE; PROTEIN (STRIP) 30; SPECIFIC GRAVITY 1.012 (1.000-1.030); UCUL ADDED? NO; UROBILINOGEN 0.2 MG/DL (0.2-1.0)
[2017-10-29 03:54] LABS: TROP-I INTERPRETATION NEGATIVE; TROPONIN-I 0.03 ng/mL (0.0-0.30)
[2017-10-29 04:34] VITALS: BP 182/90
== END 2017-10-29 04:37 | disposition home or self-care (01) ==
LOC: EME → EDBD 00:04 → EME 04:37
PROVIDERS: Emergency Medicine
DX: M54.6 Pain in thoracic spine (principal); R07.9 Chest pain, unspecified; E11.9 Type 2 diabetes mellitus without complications; Z79.4 Long term (current) use of insulin; E78.5 Hyperlipidemia, unspecified; I25.2 Old myocardial infarction; I25.10 Atherosclerotic heart disease of native coronary artery without angina pectoris; Z95.5 Presence of coronary angioplasty implant and graft; Z86.73 Personal history of transient ischemic attack (TIA), and cerebral infarction without residual deficits; F32.9 Major depressive disorder, single episode, unspecified; K21.9 Gastro-esophageal reflux disease without esophagitis
CPT/HCPCS: 71010; 80053; 81003; 82550; 82553; 83690; 83735; 84484; 85025; 93005; J2405

== ENCOUNTER 2017-11-01 20:39 | Inpatient (IN) | payer OTHER, BC ==
[~2017-11-01] VITALS: Ht 157.5 cm; Wt 82.5 kg
[2017-11-01 21:43] LABS: HEMATOCRIT 39.3 % (36.0-46.0); MCH 28.5 PG (29.0-34.0); MCHC 34.1 G/DL (30.0-36.0); MCV 83.6 FL (83-99); RBC DIS.WIDTH-CV 13.2 % (11.8-14.6); WHITE BLOOD COUNT 7.5 K/uL (4.1-10.2)
[2017-11-01 21:44] LABS: HEMOGLOBIN 13.4 G/DL (11.9-15.5); PLATELET COUNT 351 K/uL (156-360)
[2017-11-01 21:49] LABS: ALBUMIN 3.5 g/dL (3.2-4.8); CHLORIDE 103 mEq/L (99-109); POTASSIUM 4.3 mEq/L (3.7-5.4); SODIUM 141 mEq/L (136-147)
[2017-11-01 21:52] LABS: GLUCOSE 150 mg/dL (70-99); TOTAL PROTEIN 7.3 g/dL (6.4-8.3)
[2017-11-01 21:55] LABS: ALKALINE PHOSPHATASE 106 IU/L (3-129); CREATININE 1.3 mg/dL (0.6-1.3); GFR ESTIMATE (CALCULATED) 44 mL/min/
[2017-11-01 21:56] LABS: UREA NITROGEN (BUN) 16 mg/dL (9-23)
[2017-11-01 21:58] LABS: ALT (GPT) 19 IU/L (3-49)
[2017-11-01 21:59] LABS: CREATINE KINASE 17 IU/L (1-294); LIPASE 26 U/L (1.0-51.0); TROP-I INTERPRETATION NEGATIVE; TROPONIN-I 0.03 ng/mL (0.0-0.30)
[2017-11-01 22:01] LABS: AST (GOT) 11 IU/L (2-34); TOTAL BILIRUBIN 0.5 mg/dL (0.0-1.0)
[2017-11-01] MEDS ORDERED: ZESTRIL40 MG PO (23:21)
[2017-11-02] VITALS (7 sets, daily range): BP systolic 111–168; BP diastolic 57–91
[2017-11-02 04:28] LABS: HEMATOCRIT 36.9 % (36.0-46.0); HEMOGLOBIN 12.4 G/DL (11.9-15.5); MCH 28.6 PG (29.0-34.0); MCHC 33.6 G/DL (30.0-36.0); PLATELET COUNT 300 K/uL (156-360); RBC DIS.WIDTH-CV 13.1 % (11.8-14.6); RBC DIS.WIDTH-SD 40.7 % (39-53); RED BLOOD COUNT 4.34 M/uL (3.80-5.20)
[2017-11-02 04:36] LABS: CHLORIDE 102 mEq/L (99-109); SODIUM 140 mEq/L (136-147)
[2017-11-02 04:38] LABS: GLUCOSE 145 mg/dL (70-99)
[2017-11-02 04:41] LABS: CREATININE 1.2 mg/dL (0.6-1.3); GFR ESTIMATE (CALCULATED) 48 mL/min/
[2017-11-02 04:42] LABS: UREA NITROGEN (BUN) 16 mg/dL (9-23)
[2017-11-02 04:47] LABS: TROP-I INTERPRETATION NEGATIVE; TROPONIN-I 0.03 ng/mL (0.0-0.30)
[2017-11-02 11:06] LABS: TROP-I INTERPRETATION NEGATIVE; TROPONIN-I 0.03 ng/mL (0.0-0.30)
[2017-11-03 04:00] VITALS: BP 171/85
[2017-11-03 06:39] LABS: CHLORIDE 101 MEQ/L (99-109); CREATININE 1.5 MG/DL (0.6-1.3); GFR ESTIMATE (CALCULATED) 37 mL/min/; GLUCOSE 171 mg/dL (70-99); POTASSIUM 4.2 MEQ/L (3.7-5.4); SODIUM 137 MEQ/L (136-147)
[2017-11-03 06:52] LABS: UREA NITROGEN (BUN) 26 mg/dL (9-23)
[2017-11-03 07:30] VITALS: BP 154/78
[2017-11-03 11:45] VITALS: BP 109/58
[2017-11-03 16:21] VITALS: BP 124/57
[2017-11-03 20:00] VITALS: BP 144/65
[2017-11-03 23:55] VITALS: BP 169/78
[2017-11-04] VITALS (7 sets, daily range): BP systolic 104–194; BP diastolic 57–98
[2017-11-04 05:08] LABS: CHLORIDE 103 mEq/L (99-109); POTASSIUM 4.3 mEq/L (3.7-5.4); SODIUM 137 mEq/L (136-147)
[2017-11-04 05:09] LABS: GLUCOSE 122 mg/dL (70-99)
[2017-11-04 05:13] LABS: CREATININE 1.4 mg/dL (0.6-1.3); GFR ESTIMATE (CALCULATED) 40 mL/min/
[2017-11-04 05:14] LABS: UREA NITROGEN (BUN) 29 mg/dL (9-23)
[2017-11-05] VITALS: BP 173/75
[2017-11-05 03:35] VITALS: BP 140/67
[2017-11-05 05:55] LABS: CHLORIDE 103 MEQ/L (99-109); CREATININE 1.5 MG/DL (0.6-1.3); GFR ESTIMATE (CALCULATED) 37 mL/min/; GLUCOSE 140 mg/dL (70-99); POTASSIUM 4.3 MEQ/L (3.7-5.4); SODIUM 137 MEQ/L (136-147); UREA NITROGEN (BUN) 28 mg/dL (9-23)
[2017-11-05 08:34] VITALS: BP 147/70
[2017-11-05 13:23] VITALS: BP 106/62
[2017-11-05 15:47] VITALS: BP 109/58
[2017-11-05 21:09] VITALS: BP 124/58
[2017-11-06 04:25] VITALS: BP 134/77
[2017-11-06 05:48] LABS: CHLORIDE 103 MEQ/L (99-109); CREATININE 1.3 MG/DL (0.6-1.3); GFR ESTIMATE (CALCULATED) 44 mL/min/; GLUCOSE 114 mg/dL (70-99); POTASSIUM 4.2 MEQ/L (3.7-5.4); SODIUM 138 MEQ/L (136-147); UREA NITROGEN (BUN) 27 mg/dL (9-23)
[2017-11-06] MEDS ORDERED: CYCLOBENZAPRINE10 MG PO (09:27)
[2017-11-06] MEDS ORDERED: ALPRAZOLAM0.25 M2 PO (09:27)
[2017-11-06] MEDS ORDERED: APRESOLINE25 MG PO (09:27)
[2017-11-06] MEDS ORDERED: CLONIDINE HCL0.1 MG PO (09:27)
[2017-11-06 09:53] VITALS: BP 131/62
== END 2017-11-06 11:19 | disposition home or self-care (01) | DRG 313 ==
LOC: EME → EDBD 20:39 → EME 20:39 → 4EAST 11-02 00:09 → EDOF 11-02 00:09 → ENRESERV 11-02 00:11 → 4EAST 11-02 01:52 → ENRESERV 11-02 02:20 → CANRESERV 11-02 02:20 → 4EAST 11-06 11:19
PROVIDERS: Emergency Medicine; Hospitalist; Internal Medicine
DX: R07.89 Other chest pain (principal); F41.0 Panic disorder [episodic paroxysmal anxiety]; N17.9 Acute kidney failure, unspecified; I25.119 Atherosclerotic heart disease of native coronary artery with unspecified angina pectoris; J90 Pleural effusion, not elsewhere classified; M47.814 Spondylosis without myelopathy or radiculopathy, thoracic region; I10 Essential (primary) hypertension; I44.4 Left anterior fascicular block; R11.0 Nausea; T46.995A Adverse effect of other agents primarily affecting the cardiovascular system, initial encounter; E11.9 Type 2 diabetes mellitus without complications; E78.5 Hyperlipidemia, unspecified; E66.9 Obesity, unspecified; Z68.33 Body mass index [BMI] 33.0-33.9, adult; F32.9 Major depressive disorder, single episode, unspecified; I69.398 Other sequelae of cerebral infarction; H53.8 Other visual disturbances; I25.2 Old myocardial infarction; Z95.5 Presence of coronary angioplasty implant and graft; Z96.41 Presence of insulin pump (external) (internal); Z79.4 Long term (current) use of insulin
CPT/HCPCS: 71010; 71250; 72146; 78582; 80048; 80053; 82550; 82948; 83690; 84484; 85027; 85379; 93005; 99281; 99285; A9540; A9567; C1753; J1815; J2060; J2270; J7030

== ENCOUNTER 2017-11-25 13:49 | Inpatient (IN) | payer OTHER, BC ==
[~2017-11-25] VITALS: Ht 157.5 cm; Wt 78.5 kg
[~2017-11-25 13:49] MED LIST changes: +ALPRAZOLAM0.25 M2 PO; +APRESOLINE25 MG PO; +CLONIDINE HCL0.1 MG PO; +CYCLOBENZAPRINE10 MG PO; +ZESTRIL40 MG PO
[2017-11-25 14:52] LABS: BASOPHIL (%) 0.4 % (0-1); BASOPHIL COUNT 0.1 K/uL (0-0.1); EOSINOPHIL (%) 2.1 % (0-5); EOSINOPHIL COUNT 0.2 K/uL (0-0.3); HEMATOCRIT 42.1 % (36.0-46.0); HEMOGLOBIN 14.1 G/DL (11.9-15.5); IMMATURE GRANULOCYTE (%) 0.4 % (0.0-0.7); LYMPHOCYTE (%) 27.6 % (15-42); LYMPHOCYTE COUNT 3.1 K/uL (1.0-2.8); MCHC 33.5 G/DL (30.0-36.0); MCV 83.7 FL (83-99); MONOCYTE COUNT 0.9 K/uL (0-0.8); NEUTROPHIL (%) 61.5 % (45-76); NEUTROPHIL COUNT 6.9 K/uL (1.8-6.4); PLATELET COUNT 364 K/uL (156-360); RBC DIS.WIDTH-CV 13.4 % (11.8-14.6); RBC DIS.WIDTH-SD 41.2 % (39-53); RED BLOOD COUNT 5.03 M/uL (3.80-5.20); WHITE BLOOD COUNT 11.2 K/uL (4.1-10.2)
[2017-11-25 14:58] LABS: PTT 27.2 SEC (25-37)
[2017-11-25 15:09] LABS: CHLORIDE 103 mEq/L (99-109); POTASSIUM 4.6 mEq/L (3.7-5.4); SODIUM 138 mEq/L (136-147)
[2017-11-25 15:11] LABS: GLUCOSE 164 mg/dL (70-99)
[2017-11-25 15:15] LABS: CREATININE 1.3 mg/dL (0.6-1.3); GFR ESTIMATE (CALCULATED) 44 mL/min/
[2017-11-25 15:16] LABS: UREA NITROGEN (BUN) 27 mg/dL (9-23)
[2017-11-25 15:20] LABS: TROP-I INTERPRETATION NEGATIVE; TROPONIN-I 0.02 ng/mL (0.0-0.30)
[2017-11-25 17:55] LABS: HDL CHOLESTEROL 40 MG/DL (Desirable>=50); LDL CHOLESTEROL 101 mg/dL (Desirable<100); NON-HDL CHOLESTEROL 121 mg/dL (Desirable<160); TOTAL CHOLESTEROL 161 mg/dL (Desirable<200); TRIGLYCERIDES 100 MG/DL (Normal: <150)
[2017-11-25] MEDS ORDERED: TIZANIDINE HCL4 MG PO (19:09)
[2017-11-25] MEDS ORDERED: CLONAZEPAM0.5 MG PO (19:10)
[2017-11-25] MEDS ORDERED: SERTRALINE HCL50 MG PO (19:11)
[2017-11-25] MEDS ORDERED: RANEXA1000 MG PO (19:14)
[2017-11-25 21:00] VITALS: BP 158/74
[2017-11-25 21:36] LABS: TROP-I INTERPRETATION NEGATIVE; TROPONIN-I 0.02 ng/mL (0.0-0.30)
[2017-11-26] VITALS (8 sets, daily range): BP systolic 93–188; BP diastolic 54–90
[2017-11-26 03:33] LABS: TROP-I INTERPRETATION NEGATIVE; TROPONIN-I 0.02 ng/mL (0.0-0.30)
[2017-11-26 06:35] LABS: CHLORIDE 102 mEq/L (99-109); POTASSIUM 4.4 mEq/L (3.7-5.4); SODIUM 136 mEq/L (136-147)
[2017-11-26 06:38] LABS: GLUCOSE 296 mg/dL (70-99)
[2017-11-26 06:41] LABS: CREATININE 1.3 mg/dL (0.6-1.3); GFR ESTIMATE (CALCULATED) 44 mL/min/
[2017-11-26 06:42] LABS: UREA NITROGEN (BUN) 32 mg/dL (9-23)
[2017-11-26 09:44] LABS: HEMOGLOBIN A1c (GLYCOHEMOGLOB) 9.8 % (Below 5.7)
[2017-11-26 11:48] LABS: BASOPHIL (%) 0.6 % (0-1); BASOPHIL COUNT 0.1 K/uL (0-0.1); EOSINOPHIL (%) 3.1 % (0-5); EOSINOPHIL COUNT 0.3 K/uL (0-0.3); HEMATOCRIT 37.8 % (36.0-46.0); HEMOGLOBIN 12.4 G/DL (11.9-15.5); IMMATURE GRANULOCYTE (%) 0.2 % (0.0-0.7); LYMPHOCYTE (%) 25.1 % (15-42); MCHC 32.8 G/DL (30.0-36.0); MCV 85.3 FL (83-99); MONOCYTE (%) 8.6 % (3-12); MONOCYTE COUNT 0.7 K/uL (0-0.8); NEUTROPHIL (%) 62.4 % (45-76); NEUTROPHIL COUNT 5.1 K/uL (1.8-6.4); PLATELET COUNT 294 K/uL (156-360); RBC DIS.WIDTH-CV 13.5 % (11.8-14.6); RED BLOOD COUNT 4.43 M/uL (3.80-5.20); WHITE BLOOD COUNT 8.1 K/uL (4.1-10.2)
[2017-11-26 12:29] LABS: ALBUMIN 3.2 G/DL (3.2-4.8); ALKALINE PHOSPHATASE 72 IU/L (3-129); ALT (GPT) 8 IU/L (3-49); AST (GOT) 9 IU/L (2-34); CHLORIDE 100 MEQ/L (99-109); CREATININE 1.4 MG/DL (0.6-1.3); GFR ESTIMATE (CALCULATED) 40 mL/min/; GLUCOSE 410 mg/dL (70-99); POTASSIUM 4.5 MEQ/L (3.7-5.4); SODIUM 134 MEQ/L (136-147); TOTAL BILIRUBIN 0.5 MG/DL (0.0-1.0); TOTAL PROTEIN 5.8 G/DL (6.4-8.3); UREA NITROGEN (BUN) 36 mg/dL (9-23)
[2017-11-27 01:11] VITALS: BP 88/52
[2017-11-27 05:43] LABS: BASOPHIL (%) 0.3 % (0-1); EOSINOPHIL (%) 1.8 % (0-5); EOSINOPHIL COUNT 0.2 K/uL (0-0.3); HEMOGLOBIN 11.7 G/DL (11.9-15.5); IMMATURE GRANULOCYTE (%) 0.3 % (0.0-0.7); LYMPHOCYTE (%) 30.4 % (15-42); LYMPHOCYTE COUNT 3.4 K/uL (1.0-2.8); MCH 27.6 PG (29.0-34.0); MCHC 32.5 G/DL (30.0-36.0); MCV 84.9 FL (83-99); MONOCYTE COUNT 0.9 K/uL (0-0.8); NEUTROPHIL (%) 59.2 % (45-76); NEUTROPHIL COUNT 6.6 K/uL (1.8-6.4); PLATELET COUNT 298 K/uL (156-360); RBC DIS.WIDTH-CV 13.5 % (11.8-14.6); RBC DIS.WIDTH-SD 41.9 % (39-53); RED BLOOD COUNT 4.24 M/uL (3.80-5.20); WHITE BLOOD COUNT 11.1 K/uL (4.1-10.2)
[2017-11-27 07:46] LABS: ALBUMIN 3.2 G/DL (3.2-4.8); ALKALINE PHOSPHATASE 58 IU/L (3-129); ALT (GPT) 7 IU/L (3-49); AST (GOT) 9 IU/L (2-34); CHLORIDE 99 MEQ/L (99-109); CREATININE 2.5 MG/DL (0.6-1.3); GFR ESTIMATE (CALCULATED) 20 mL/min/; GLUCOSE 148 mg/dL (70-99); POTASSIUM 4.6 MEQ/L (3.7-5.4); SODIUM 135 MEQ/L (136-147); TOTAL BILIRUBIN 0.5 MG/DL (0.0-1.0); TOTAL PROTEIN 5.9 G/DL (6.4-8.3); UREA NITROGEN (BUN) 51 mg/dL (9-23)
[2017-11-27 07:57] VITALS: BP 88/51
[2017-11-27 08:10] LABS: THYROTROPIN (TSH) 1.6 MIU/L (0.4-5.5)
[2017-11-27 11:03] VITALS: BP 127/58
[2017-11-27 11:21] LABS: TREPONEMA ANTIBODY NEGATIVE (NEGATIVE)
[2017-11-27 16:15] VITALS: BP 120/60
[2017-11-27 18:30] LABS: CHLORIDE 100 MEQ/L (99-109); CREATININE 2.5 MG/DL (0.6-1.3); GFR ESTIMATE (CALCULATED) 20 mL/min/; GLUCOSE 281 mg/dL (70-99); POTASSIUM 4.9 MEQ/L (3.7-5.4); SODIUM 134 MEQ/L (136-147); UREA NITROGEN (BUN) 59 mg/dL (9-23)
[2017-11-27 18:47] LABS: APPEARANCE CLEAR ((CLEAR)); BILIRUBIN NEGATIVE; BLOOD SMALL; COLOR YELLOW ((YELLOW)); GLUCOSE (STRIP) >=500; KETONES NEGATIVE; LEUKOCYTES TRACE; NITRITE NEGATIVE; PROTEIN (STRIP) NEGATIVE; SPECIFIC GRAVITY 1.009 (1.000-1.030); UROBILINOGEN 0.2 MG/DL (0.2-1.0)
[2017-11-27 19:07] LABS: BACTERIA RARE /HPF; EPITHELIAL CELLS RARE /HPF; HYALINE CASTS 0-5 /LPF; MUCUS TRACE /LPF; RED BLOOD CELLS 0-5 /HPF (0-5); UCUL ADDED? NO; WHITE BLOOD CELLS 0-5 /HPF (0-5)
[2017-11-27 19:35] LABS: UR CREATININE CONCENTRATION 79.5 MG/DL; UR CREATININE CONCENTRATION 80.8 MG/DL
[2017-11-27 19:40] VITALS: BP 110/52
[2017-11-27 23:58] VITALS: BP 106/55
[2017-11-28 04:03] VITALS: BP 123/66
[2017-11-28 06:06] LABS: BASOPHIL (%) 0.4 % (0-1); EOSINOPHIL (%) 3.1 % (0-5); EOSINOPHIL COUNT 0.2 K/uL (0-0.3); HEMATOCRIT 36.4 % (36.0-46.0); HEMOGLOBIN 11.9 G/DL (11.9-15.5); IMMATURE GRANULOCYTE (%) 0.3 % (0.0-0.7); LYMPHOCYTE (%) 26.4 % (15-42); MCH 28.3 PG (29.0-34.0); MCHC 32.7 G/DL (30.0-36.0); MCV 86.5 FL (83-99); MONOCYTE (%) 6.3 % (3-12); MONOCYTE COUNT 0.5 K/uL (0-0.8); NEUTROPHIL (%) 63.5 % (45-76); NEUTROPHIL COUNT 4.9 K/uL (1.8-6.4); PLATELET COUNT 281 K/uL (156-360); RBC DIS.WIDTH-CV 13.4 % (11.8-14.6); RBC DIS.WIDTH-SD 41.5 % (39-53); RED BLOOD COUNT 4.21 M/uL (3.80-5.20); WHITE BLOOD COUNT 7.7 K/uL (4.1-10.2)
[2017-11-28 06:23] LABS: CHLORIDE 108 MEQ/L (99-109); CREATININE 2.1 MG/DL (0.6-1.3); GFR ESTIMATE (CALCULATED) 25 mL/min/; GLUCOSE 178 mg/dL (70-99); POTASSIUM 4.8 MEQ/L (3.7-5.4); SODIUM 137 MEQ/L (136-147); UREA NITROGEN (BUN) 56 mg/dL (9-23)
[2017-11-28 09:18] VITALS: BP 139/65
[2017-11-28 11:59] VITALS: BP 126/67
[2017-11-28 15:43] VITALS: BP 145/71
[2017-11-28 19:45] VITALS: BP 124/66
[2017-11-29 00:10] VITALS: BP 162/77
[2017-11-29 04:07] VITALS: BP 179/84
[2017-11-29 07:48] VITALS: BP 183/86
[2017-11-29 10:17] LABS: CHLORIDE 106 MEQ/L (99-109); GFR ESTIMATE (CALCULATED) 37 mL/min/; GLUCOSE 169 mg/dL (70-99); POTASSIUM 4.5 MEQ/L (3.7-5.4); SODIUM 135 MEQ/L (136-147); UREA NITROGEN (BUN) 40 mg/dL (9-23)
[2017-11-29 10:20] LABS: CREATININE 1.5 MG/DL (0.6-1.3)
[2017-11-29 11:51] VITALS: BP 133/73
[2017-11-29 16:18] VITALS: BP 134/63
[2017-11-29 20:00] VITALS: BP 126/60
[2017-11-30 00:17] VITALS: BP 134/61
[2017-11-30 04:00] VITALS: BP 145/71
[2017-11-30 08:00] VITALS: BP 165/78
[2017-11-30] MEDS ORDERED: TIZANIDINE HCL4 MG PO (09:08)
[2017-11-30] MEDS ORDERED: RANEXA500 MG PO (09:08)
[2017-11-30 11:52] VITALS: BP 149/80
[2017-11-30 16:15] VITALS: BP 122/58
== END 2017-11-30 17:47 | disposition home health service (06) | DRG 69 ==
LOC: EME 13:49 → EDOF 16:19 → ENRESERV 16:48 → 5WEST 20:38 → ENPENDDIS 11-30 → 5WEST 11-30 17:47
PROVIDERS: Emergency Medicine; Hospitalist; Internal Medicine; Nurse Practitioner Adult Health; Physician Assistant Medical
DX: G45.9 Transient cerebral ischemic attack, unspecified (principal); N17.9 Acute kidney failure, unspecified; E11.65 Type 2 diabetes mellitus with hyperglycemia; G93.89 Other specified disorders of brain; R41.0 Disorientation, unspecified; I12.9 Hypertensive chronic kidney disease with stage 1 through stage 4 chronic kidney disease, or unspecified chronic kidney disease; N18.3 Chronic kidney disease, stage 3 (moderate); E11.22 Type 2 diabetes mellitus with diabetic chronic kidney disease; R27.0 Ataxia, unspecified; I69.392 Facial weakness following cerebral infarction; I25.10 Atherosclerotic heart disease of native coronary artery without angina pectoris; I45.10 Unspecified right bundle-branch block; I25.2 Old myocardial infarction; K21.9 Gastro-esophageal reflux disease without esophagitis; E78.5 Hyperlipidemia, unspecified; G43.909 Migraine, unspecified, not intractable, without status migrainosus; I49.3 Ventricular premature depolarization; H54.62 Unqualified visual loss, left eye, normal vision right eye; F32.9 Major depressive disorder, single episode, unspecified; Z79.02 Long term (current) use of antithrombotics/antiplatelets; Z79.82 Long term (current) use of aspirin; Z96.41 Presence of insulin pump (external) (internal); Z79.4 Long term (current) use of insulin; Z95.5 Presence of coronary angioplasty implant and graft; Z90.710 Acquired absence of both cervix and uterus; Z82.3 Family history of stroke; Z82.49 Family history of ischemic heart disease and other diseases of the circulatory system
CPT/HCPCS: 70450; 70551; 71045; 76770; 80048; 80048 91; 80053; 80061; 81003; 82043; 82570; 82948; 83036; 83735; 84156; 84443; 84484; 85025; 85610; 85730; 86780; 93005; 93306; 93880; 99281; 99285; G0378; J1644; J1650; J1815; J2060; J2405; J7030

== ENCOUNTER 2018-01-03 05:06 | Inpatient (IN) | payer OTHER, BC ==
[~2018-01-03] VITALS: Ht 157.5 cm; Wt 81.5 kg
[~2018-01-03 05:06] MED LIST changes: +CLONAZEPAM0.5 MG PO; +RANEXA1000 MG PO; +SERTRALINE HCL50 MG PO; +TIZANIDINE HCL4 MG PO
[2018-01-03 06:15] LABS: CARBON DIOXIDE (BICARBONATE) 29.8 MEQ/L (20-31)
[2018-01-03 06:16] LABS: HEMATOCRIT 37.5 % (36.0-46.0); HEMOGLOBIN 12.7 G/DL (11.9-15.5); MCH 28.7 PG (29.0-34.0); MCHC 33.9 G/DL (30.0-36.0); MCV 84.8 FL (83-99); PLATELET COUNT 296 K/uL (156-360); RBC DIS.WIDTH-CV 13.4 % (11.8-14.6); RBC DIS.WIDTH-SD 41.9 % (39-53); RED BLOOD COUNT 4.42 M/uL (3.80-5.20); WHITE BLOOD COUNT 9.2 K/uL (4.1-10.2)
[2018-01-03 06:26] LABS: ALBUMIN 3.5 g/dL (3.2-4.8)
[2018-01-03 06:27] LABS: CHLORIDE 97 mEq/L (99-109); POTASSIUM 4.2 mEq/L (3.7-5.4); SODIUM 134 mEq/L (136-147)
[2018-01-03 06:29] LABS: GLUCOSE 349 mg/dL (70-99); TOTAL PROTEIN 6.6 g/dL (6.4-8.3)
[2018-01-03 06:31] LABS: TOTAL BILIRUBIN 0.4 mg/dL (0.0-1.0)
[2018-01-03 06:32] LABS: ALKALINE PHOSPHATASE 115 IU/L (3-129)
[2018-01-03 06:33] LABS: CREATININE 1.1 mg/dL (0.6-1.3); GFR ESTIMATE (CALCULATED) 53 mL/min/
[2018-01-03 06:34] LABS: AST (GOT) 15 IU/L (2-34); UREA NITROGEN (BUN) 17 mg/dL (9-23)
[2018-01-03 06:36] LABS: ALT (GPT) 18 IU/L (3-49); LIPASE 24 U/L (1.0-51.0)
[2018-01-03 06:42] LABS: TROP-I INTERPRETATION NEGATIVE; TROPONIN-I 0.02 ng/mL (0.0-0.30)
[2018-01-03 10:43] VITALS: BP 180/92
[2018-01-03 13:13] LABS: TROP-I INTERPRETATION NEGATIVE; TROPONIN-I 0.01 ng/mL (0.0-0.30)
[2018-01-03 15:22] VITALS: BP 178/90
[2018-01-03 17:45] VITALS: BP 164/98
[2018-01-03 19:49] VITALS: BP 166/86
[2018-01-03 20:08] LABS: TROP-I INTERPRETATION NEGATIVE; TROPONIN-I < 0.01 ng/mL (0.0-0.30)
[2018-01-03 23:41] VITALS: BP 170/73
[2018-01-04 03:45] VITALS: BP 143/90
[2018-01-04 07:10] VITALS: BP 162/83
[2018-01-04 11:04] VITALS: BP 169/87
[2018-01-04 11:12] LABS: HDL CHOLESTEROL 32 MG/DL (Desirable>=50); LDL CHOLESTEROL 103 mg/dL (Desirable<100); NON-HDL CHOLESTEROL 127 mg/dL (Desirable<160); TOTAL CHOLESTEROL 159 mg/dL (Desirable<200); TRIGLYCERIDES 120 MG/DL (Normal: <150)
[2018-01-04] MEDS ORDERED: CLONIDINE HCL0.1 MG PO (12:06)
== END 2018-01-04 12:41 | disposition home or self-care (01) | DRG 66 ==
LOC: EME 05:06 → EDOF 08:41 → ENRESERV 08:44 → EDOF 08:49 → ENRESERV 08:58 → 5WEST 10:18 → ENRESERV 13:06 → 5SOUTH 17:36
PROVIDERS: Emergency Medicine; Internal Medicine; Physician Assistant
DX: I63.9 Cerebral infarction, unspecified (principal); R13.10 Dysphagia, unspecified; G93.89 Other specified disorders of brain; I10 Essential (primary) hypertension; E11.65 Type 2 diabetes mellitus with hyperglycemia; I25.10 Atherosclerotic heart disease of native coronary artery without angina pectoris; E78.5 Hyperlipidemia, unspecified; E11.51 Type 2 diabetes mellitus with diabetic peripheral angiopathy without gangrene; Z95.5 Presence of coronary angioplasty implant and graft; Z90.710 Acquired absence of both cervix and uterus; Z86.73 Personal history of transient ischemic attack (TIA), and cerebral infarction without residual deficits; Z79.82 Long term (current) use of aspirin; Z82.3 Family history of stroke; Z82.49 Family history of ischemic heart disease and other diseases of the circulatory system; I25.2 Old myocardial infarction; K21.9 Gastro-esophageal reflux disease without esophagitis; F41.1 Generalized anxiety disorder
CPT/HCPCS: 70490; 70551; 71045; 80053; 80061; 82010; 82803; 82948; 83690; 84484; 85027; 87651 90; 92610 GN; 93005; 99281; 99285; G8996 GN CI; G8998 GN CH; J1650; J1815; J2060; J3010; J7030

== ENCOUNTER 2018-01-10 11:27 | Emergency (ER) | payer OTHER, BC ==
[~2018-01-10] VITALS: Ht 157.5 cm; Wt 78.7 kg
[2018-01-10 12:53] LABS: CARBON DIOXIDE (BICARBONATE) 34.4 MEQ/L (20-31)
[2018-01-10 12:54] LABS: HEMATOCRIT 40.4 % (36.0-46.0); HEMOGLOBIN 13.7 G/DL (11.9-15.5); MCH 28.6 PG (29.0-34.0); MCHC 33.9 G/DL (30.0-36.0); MCV 84.3 FL (83-99); RBC DIS.WIDTH-CV 13.5 % (11.8-14.6); RBC DIS.WIDTH-SD 41.8 % (39-53); RED BLOOD COUNT 4.79 M/uL (3.80-5.20); WHITE BLOOD COUNT 11.3 K/uL (4.1-10.2)
[2018-01-10 12:55] LABS: PLATELET COUNT 397 K/uL (156-360)
[2018-01-10 13:07] LABS: ALBUMIN 4.1 g/dL (3.2-4.8); CHLORIDE 99 mEq/L (99-109); POTASSIUM 4.3 mEq/L (3.7-5.4); SODIUM 136 mEq/L (136-147)
[2018-01-10 13:08] LABS: MAGNESIUM 2.2 mg/dL (1.3-2.7)
[2018-01-10 13:10] LABS: TOTAL PROTEIN 7.8 g/dL (6.4-8.3)
[2018-01-10 13:12] LABS: TOTAL BILIRUBIN 0.4 mg/dL (0.0-1.0)
[2018-01-10 13:13] LABS: ALKALINE PHOSPHATASE 118 IU/L (3-129); PHOSPHORUS 3.8 mg/dL (2.5-4.9)
[2018-01-10 13:14] LABS: CREATININE 1.4 mg/dL (0.6-1.3); GFR ESTIMATE (CALCULATED) 40 mL/min/
[2018-01-10 13:15] LABS: AST (GOT) 11 IU/L (2-34); TROP-I INTERPRETATION NEGATIVE; TROPONIN-I 0.02 ng/mL (0.0-0.30); UREA NITROGEN (BUN) 21 mg/dL (9-23)
[2018-01-10 13:17] LABS: ALT (GPT) 14 IU/L (3-49); LIPASE 81 U/L (1.0-51.0)
[2018-01-10 13:25] LABS: GLUCOSE 446 mg/dL (70-99)
[2018-01-10 17:10] VITALS: BP 191/89
[2018-01-10 20:09] LABS: APPEARANCE CLEAR ((CLEAR)); BILIRUBIN NEGATIVE; BLOOD NEGATIVE; COLOR STRAW ((YELLOW)); GLUCOSE (STRIP) >=500; KETONES NEGATIVE; LEUKOCYTES NEGATIVE; NITRITE NEGATIVE; PROTEIN (STRIP) NEGATIVE; SPECIFIC GRAVITY 1.024 (1.000-1.030); UROBILINOGEN 0.2 MG/DL (0.2-1.0)
== END 2018-01-10 17:11 | disposition home or self-care (01) ==
LOC: EME 11:27
PROVIDERS: Emergency Medicine
DX: E11.65 Type 2 diabetes mellitus with hyperglycemia (principal); E87.0 Hyperosmolality and hypernatremia; T38.3X6A Underdosing of insulin and oral hypoglycemic [antidiabetic] drugs, initial encounter; Z91.128 Patient's intentional underdosing of medication regimen for other reason; E78.5 Hyperlipidemia, unspecified; I10 Essential (primary) hypertension; F32.9 Major depressive disorder, single episode, unspecified; I25.2 Old myocardial infarction; K21.9 Gastro-esophageal reflux disease without esophagitis; Z95.5 Presence of coronary angioplasty implant and graft; Z86.73 Personal history of transient ischemic attack (TIA), and cerebral infarction without residual deficits; Z87.442 Personal history of urinary calculi
CPT/HCPCS: 71046; 80053; 81003; 82803; 82948; 83605; 83690; 83735; 83930; 84100; 84484; 85027; 87040; 87086; 93005; 99281; 99285; J7030

== ENCOUNTER 2018-01-26 00:25 | Observation (INO) | payer OTHER, BC ==
[~2018-01-26] VITALS: Ht 157.5 cm; Wt 80.0 kg
[2018-01-26 00:57] LABS: HEMATOCRIT 37.1 % (36.0-46.0); HEMOGLOBIN 12.5 G/DL (11.9-15.5); MCH 28.5 PG (29.0-34.0); MCHC 33.7 G/DL (30.0-36.0); MCV 84.7 FL (83-99); PLATELET COUNT 305 K/uL (156-360); RBC DIS.WIDTH-CV 13.7 % (11.8-14.6); RBC DIS.WIDTH-SD 42.7 % (39-53); RED BLOOD COUNT 4.38 M/uL (3.80-5.20); WHITE BLOOD COUNT 7.7 K/uL (4.1-10.2)
[2018-01-26 01:04] LABS: INTER. NORMALIZED RATIO 0.9
[2018-01-26 01:07] LABS: CHLORIDE 99 mEq/L (99-109); PTT 27.4 SEC (25-37); SODIUM 137 mEq/L (136-147)
[2018-01-26 01:09] LABS: GLUCOSE 280 mg/dL (70-99)
[2018-01-26 01:12] LABS: CREATININE 1.1 mg/dL (0.6-1.3); GFR ESTIMATE (CALCULATED) 53 mL/min/
[2018-01-26 01:13] LABS: UREA NITROGEN (BUN) 23 mg/dL (9-23)
[2018-01-26 01:15] LABS: CREATINE KINASE 20 IU/L (1-294)
[2018-01-26 01:19] LABS: TROP-I INTERPRETATION NEGATIVE; TROPONIN-I 0.03 ng/mL (0.0-0.30)
[2018-01-26 02:59] LABS: APPEARANCE CLEAR ((CLEAR)); BILIRUBIN NEGATIVE; BLOOD NEGATIVE; COLOR STRAW ((YELLOW)); GLUCOSE (STRIP) >=500; KETONES NEGATIVE; LEUKOCYTES NEGATIVE; NITRITE NEGATIVE; PROTEIN (STRIP) NEGATIVE; SPECIFIC GRAVITY 1.006 (1.000-1.030); UCUL ADDED? NO; UROBILINOGEN 0.2 MG/DL (0.2-1.0)
[2018-01-26 07:10] LABS: HDL CHOLESTEROL 49 MG/DL (Desirable>=50); LDL CHOLESTEROL 108 mg/dL (Desirable<100); NON-HDL CHOLESTEROL 129 mg/dL (Desirable<160); TOTAL CHOLESTEROL 178 mg/dL (Desirable<200); TRIGLYCERIDES 104 MG/DL (Normal: <150)
[2018-01-26 07:17] LABS: TROP-I INTERPRETATION NEGATIVE; TROPONIN-I 0.04 ng/mL (0.0-0.30)
[2018-01-26 11:42] VITALS: BP 139/76
[2018-01-26 11:52] LABS: HEMOGLOBIN A1c (GLYCOHEMOGLOB) 9.3 % (Below 5.7)
[2018-01-26 16:20] VITALS: BP 96/52
[2018-01-26 19:59] VITALS: BP 96/55
[2018-01-26 23:51] VITALS: BP 106/53
[2018-01-27 03:24] VITALS: BP 98/49
[2018-01-27 05:34] LABS: HEMATOCRIT 33.2 % (36.0-46.0); MCH 28.6 PG (29.0-34.0); MCHC 33.1 G/DL (30.0-36.0); MCV 86.5 FL (83-99); PLATELET COUNT 267 K/uL (156-360); RBC DIS.WIDTH-CV 14.2 % (11.8-14.6); RBC DIS.WIDTH-SD 44.5 % (39-53); RED BLOOD COUNT 3.84 M/uL (3.80-5.20); WHITE BLOOD COUNT 6.7 K/uL (4.1-10.2)
[2018-01-27 06:01] LABS: CHLORIDE 104 MEQ/L (99-109); CREATININE 1.2 MG/DL (0.6-1.3); GFR ESTIMATE (CALCULATED) 48 mL/min/; GLUCOSE 184 mg/dL (70-99); MAGNESIUM 1.9 mg/dl (1.3-2.7); POTASSIUM 4.6 MEQ/L (3.7-5.4); SODIUM 139 MEQ/L (136-147); UREA NITROGEN (BUN) 21 mg/dL (9-23)
[2018-01-27 09:58] VITALS: BP 113/56
[2018-01-27 11:34] VITALS: BP 155/68
[2018-01-27 13:35] VITALS: BP 121/65
[2018-01-27] MEDS ORDERED: ASPIR-LOW81 MG PO (13:49)
== END 2018-01-27 14:53 | disposition home health service (06) ==
LOC: EME → EDBD 00:25 → EME 00:25 → EDOF 05:01 → 5WEST 05:01 → EDOF 05:01 → ENRESERV 05:05 → 5WEST 11:37 → ENPENDDIS 01-27 14:37 → 5WEST 01-27 14:53
PROVIDERS: Emergency Medicine; Hospitalist; Internal Medicine
DX: R47.81 Slurred speech (principal); R07.9 Chest pain, unspecified; R06.02 Shortness of breath; Z86.73 Personal history of transient ischemic attack (TIA), and cerebral infarction without residual deficits; R20.0 Anesthesia of skin; E11.65 Type 2 diabetes mellitus with hyperglycemia; R53.1 Weakness; I25.10 Atherosclerotic heart disease of native coronary artery without angina pectoris; Z95.5 Presence of coronary angioplasty implant and graft; I10 Essential (primary) hypertension; E78.5 Hyperlipidemia, unspecified; F32.9 Major depressive disorder, single episode, unspecified; F41.9 Anxiety disorder, unspecified; K21.9 Gastro-esophageal reflux disease without esophagitis; Z79.4 Long term (current) use of insulin; Z79.82 Long term (current) use of aspirin
CPT/HCPCS: 70450; 70496; 70498; 70551; 71045; 80048; 80061; 81003; 82550; 82948; 83036; 83735; 84443; 84484; 85027; 85610; 85730; 93005; 99281; 99285; G0378; G8978 GP CJ; G8979 GP CI; G8980 CJ; G8987 GO CJ; G8988 CI; G8989 CJ; J1644; J1815; J2060; J7030

== ENCOUNTER 2018-06-17 21:05 | Inpatient (IN) | payer OTHER, BC ==
[~2018-06-17] VITALS: Ht 157.5 cm; Wt 78.7 kg
[2018-06-17 21:37] LABS: BASOPHIL (%) 0.4 % (0-1); EOSINOPHIL (%) 0.9 % (0-5); EOSINOPHIL COUNT 0.1 K/uL (0-0.3); HEMATOCRIT 39.9 % (36.0-46.0); HEMOGLOBIN 13.6 G/DL (11.9-15.5); IMMATURE GRANULOCYTE (%) 0.3 % (0.0-0.7); LYMPHOCYTE COUNT 2.7 K/uL (1.0-2.8); MCH 27.9 PG (29.0-34.0); MCHC 34.1 G/DL (30.0-36.0); MCV 81.8 FL (83-99); MONOCYTE (%) 5.6 % (3-12); MONOCYTE COUNT 0.5 K/uL (0-0.8); NEUTROPHIL (%) 62.8 % (45-76); NEUTROPHIL COUNT 5.7 K/uL (1.8-6.4); PLATELET COUNT 321 K/uL (156-360); RBC DIS.WIDTH-CV 13.2 % (11.8-14.6); RBC DIS.WIDTH-SD 39.3 % (39-53); RED BLOOD COUNT 4.88 M/uL (3.80-5.20); WHITE BLOOD COUNT 9.1 K/uL (4.1-10.2)
[2018-06-17 21:45] LABS: INTER. NORMALIZED RATIO 0.9
[2018-06-17 21:47] LABS: AMYLASE 43 IU/L (1-118); CHLORIDE 100 mEq/L (99-109); POTASSIUM 4.6 mEq/L (3.7-5.4); SODIUM 134 mEq/L (136-147)
[2018-06-17 21:48] LABS: PTT 24.9 SEC (25-37)
[2018-06-17 21:52] LABS: CREATININE 1.3 mg/dL (0.6-1.3); GFR ESTIMATE (CALCULATED) 44 mL/min/; SERUM ETHYL ALCOHOL < 10 mg/dL
[2018-06-17 21:53] LABS: UREA NITROGEN (BUN) 23 mg/dL (9-23)
[2018-06-17 21:54] LABS: GLUCOSE 596 mg/dL (70-99)
[2018-06-17 21:55] LABS: LIPASE 33 U/L (1.0-51.0)
[2018-06-17 21:58] LABS: TROP-I INTERPRETATION NEGATIVE; TROPONIN-I < 0.01 ng/mL (0.0-0.30)
[2018-06-18] MEDS ORDERED: TOUJEO SOL300 UNIT/1 SC (00:02)
[2018-06-18] MEDS ORDERED: LISINOPRIL40 MG PO (00:08)
[2018-06-18] MEDS ORDERED: APRESOLINE50 MG PO (00:08)
[2018-06-18] MEDS ORDERED: JARDIANCE10 MG PO (00:09)
[2018-06-18] MEDS ORDERED: NITROGLYCERIN0.4 MG SL (00:10)
[2018-06-18] MEDS ORDERED: SERTRALINE HCL100 MG PO (00:10)
[2018-06-18] MEDS ORDERED: ATORVASTATIN CA40 MG PO (00:11)
[2018-06-18] MEDS ORDERED: PANTOPRAZOLE SO40 MG PO (00:11)
[2018-06-18] MEDS ORDERED: BRILINTA90 MG PO (00:16)
[2018-06-18] MEDS ORDERED: ZANAFLEX4 M1 PO (00:16)
[2018-06-18] MEDS ORDERED: TOPROL XL25 MG PO (00:17)
[2018-06-18] MEDS ORDERED: CATAPRES0.1 MG PO (00:18)
[2018-06-18 01:50] VITALS: BP 153/68
[2018-06-18 04:34] VITALS: BP 156/78
[2018-06-18 07:05] LABS: HDL CHOLESTEROL 39 MG/DL (Desirable>=50); LDL CHOLESTEROL 118 mg/dL (Desirable<100); NON-HDL CHOLESTEROL 159 mg/dL (Desirable<160); TOTAL CHOLESTEROL 198 mg/dL (Desirable<200); TRIGLYCERIDES 203 MG/DL (Normal: <150)
[2018-06-18 07:38] VITALS: BP 150/80
[2018-06-18 10:30] LABS: HEMOGLOBIN A1c (GLYCOHEMOGLOB) 13.3 % (Below 5.7)
[2018-06-18 11:45] VITALS: BP 117/67
[2018-06-18 15:27] VITALS: BP 103/61
[2018-06-18 19:28] VITALS: BP 134/63
[2018-06-19 00:10] VITALS: BP 114/61
[2018-06-19 04:12] VITALS: BP 119/60
[2018-06-19 07:02] VITALS: BP 100/58
== END 2018-06-19 11:15 | disposition home or self-care (01) | DRG 74 ==
LOC: EME 21:05 → EDOF 06-18 00:21 → ENRESERV 06-18 00:23 → 5SOUTH 06-18 01:25
PROVIDERS: Emergency Medicine; Hospitalist
DX: G56.22 Lesion of ulnar nerve, left upper limb (principal); R20.2 Paresthesia of skin; E11.65 Type 2 diabetes mellitus with hyperglycemia; R29.810 Facial weakness; R53.1 Weakness; I69.398 Other sequelae of cerebral infarction; H53.40 Unspecified visual field defects; H54.7 Unspecified visual loss; I25.10 Atherosclerotic heart disease of native coronary artery without angina pectoris; I10 Essential (primary) hypertension; E78.5 Hyperlipidemia, unspecified; G43.909 Migraine, unspecified, not intractable, without status migrainosus; G93.89 Other specified disorders of brain; K21.9 Gastro-esophageal reflux disease without esophagitis; I25.2 Old myocardial infarction; F32.9 Major depressive disorder, single episode, unspecified; F41.9 Anxiety disorder, unspecified; Z95.5 Presence of coronary angioplasty implant and graft; Z87.11 Personal history of peptic ulcer disease
CPT/HCPCS: 70450; 70496; 70498; 70551; 71045; 80048; 80061; 81003; 82150; 82948; 83036; 83690; 84484; 85025; 85610; 85730; 86850; 86900; 86901; 99281; 99285; G0480; J1644; J1815; J2060; J7040; Q0177